=== PATIENT | male | born 1965 | race Caucasian/White ===

== ENCOUNTER 2016-12-26 13:46 | Outpatient (CLI) | payer BC ==
[2016-12-26 15:21] LABS: #Basophils 0.1 thou/uL (0.0-0.2); #Eosinphils 0.3 thou/uL (0.0-0.7); #Lymphocytes 3.2 thou/uL (1.20-3.40); #Monocytes 0.9 thou/uL (0.11-0.59); #Neutrophils 7.5 thou/uL (1.40-6.50); %Basophils 0.9 % (0.0-1.0); %Eosinophils 2.9 % (0.0-10.0); %Lymphocytes 26.4 % (21.0-51.0); %Monocytes 7.4 % (0.0-10.0); Hematocrit 55.1 % (42.0-52.0); Mean Platelet Volume 7.4 fL (7.4-10.4); Red Blood Cell (RBC) Count 6.16 mill/uL (4.70-6.10)
[2016-12-26 15:44] LABS: Anion Gap 13 mmol/L (10-20); BUN (Urea Nitrogen) 13 mg/dL (8.4-25.7); Calc. Creatinine Clearance 0 mL/min (70-130); Calcium 9.2 mg/dL (7.8-10.44); Carbon Dioxide 26 mmol/L (22-29); Chloride 101 mmol/L (98-107); Estimated GFR-MDRD 84
== END 2016-12-26 13:47 | disposition home or self-care (01) ==
LOC: LABBT 13:46
PROVIDERS: ATTEND Orthopaedic Surgery
DX: Z01.818 Encounter for other preprocedural examination (principal); M75.101 Unspecified rotator cuff tear or rupture of right shoulder, not specified as traumatic
CPT/HCPCS: 80048; 85025; 93005; 93010

== ENCOUNTER → 2016-12-28 | Day surgery (SDC) | payer BC ==
[2016-12-26 14:06] VITALS: BMI 44.1
[~2016-12-28] MED LIST: Fentanyl 100 MCG/2 ML VIAL IV PRN; Fentanyl 100 MCG/2 ML VIAL ONE; Glycopyrrolate 0.2 MG/ML 5 ML SYRINGE ONE; HYDROcodone/Acetaminophen 7.5/325 mg Tablet PO PRN; Ketorolac Tromethamine 30 MG/ML VIAL IVP PRN; Ketorolac Tromethamine 30 MG/ML VIAL ONE; Lidocaine 1% PF 5 ML VIAL ONE; Midazolam HCl 2 mg/2 ml Vial ONE; Ondansetron HCl/PF 4 MG/2 ML Vial IVP PRN; Ondansetron HCl/PF 4 MG/2 ML Vial ONE; Pentazocine HCl/Naloxone HCl 50/0.5 MG TAB PO SCH; Promethazine HCl 25 MG/ML VIAL IM PRN; Propofol 200 MG/20 ML VIAL ONE; Ropivacaine 0.2% 550 ML 550 ML NERVE BLCK SCH; Ropivacaine 0.2% HCl/PF 20 ML ONE; Sodium Chloride For Inhalation 0.9% 3 ML NEB ONE; Succinylcholine Chloride 20 MG/ML 10 ml SYRINGE FS ONE; Zolpidem Tartrate 5 MG TAB PO PRN; traMADol HCl 50 MG TAB PO PRN
--- NOTE | 2016-12-28 14:30 | OP ---
DATE OF PROCEDURE: 12/28/2016 PREOPERATIVE DIAGNOSES: Right shoulder impingement with rotator cuff tear and degenerative labral t ear leading to biceps instability. POSTOPERATIVE DIAGNOSES: Right shoulder impingement with rotator cuff tear and degenerative labral tear leading to biceps instability. PROCEDURE PERFORMED: Right shoulder open subacromial decompression followed by open rotator cuff re pair, followed by open biceps tenodesis. SURGEON: Cooper Bowles M.D. RANGE CONSERVATIONIST: Mariano Baker PA-C. BLOOD LOSS: Approximately 50 mL. COMPLICATIONS: None. IMPLANTS: We used 2 double loaded titanium anchors as well as two 4.75 BioComposite SwiveLocks with rotator cuff tear and we used a 7 x 23 BioComposite Bio-Tenodesis screw. DISPOSITION: He did go to recovery in stable condition. CONDITION: He had general anesthetic, he also had a block. INDICATIONS: This is a 51-year-old male who has been having problems with his right shoulder with p ain and weakness and he has failed nonoperative treatment at this time. At this time, he wished his rotator cuff repaired. DESCRIPTION OF PROCEDURE: After all appropriate consent forms were explained and signed, he was satish en to the operating room and at this time and was given a general anesthetic. Once the level of ane sthesia was appropriate, he was placed in modified beach chair position with all bony prominences we ll-padded. At this time, the right shoulder and upper extremity were then prepped and draped in the standard surgical fashion. Incision line was made with a 10 blade down through skin. Bovie was us ed to coagulate any brisk venous bleeding. At this time, full thickness deltoid and deltoid fascia was taken off the anterior acromion and a Enrique was used to protect the underlying rotator cuff, a saw was used to perform anterior inferior acromioplasty. Rasp was used to smooth off the edges. At this time, we then removed our bursa which was on top of the underlying rotator cuff. Once this was removed, we were able to visualize our cuff tear. All the edges were cleaned up with a knife as well as a rongeur. There was an undersurface delamination noted in the posterior aspect of the sup raspinatus going on into the infraspinatus. A portion of this was debrided and we then passed some 0 Vicryl sutures in mattress fashion to sew the bottom layer to the top layer closing this down. At this time, we then turned our attention to find the biceps tendon. This was tagged, cut out from i nside the joint. We then opened up the bicipital groove, coagulating any brisk venous bleeding. We then sewed and cut off the intra-articular portion of the biceps tendon. We then placed our pin, d rilled with a 7 mm reamer to a depth of 25 and placed our BioComposite Bio-Tenodesis screw in standa rd fashion. Stitches were tied over top so the screw could not back out and these were then cut. A t this time, our biceps was tenodesed and we then turned our attention to repairing our rotator cuff . The greater tuberosity had all soft tissue removed from it to get to good bleeding punctate bone. We then thoroughly irrigated and dried. We then placed two double loaded titanium anchors right o ff the articular surface and passed these threads through the rotator cuff in mattress fashion using a free needle. These were then sequentially tied and we then took 4 strands each and placed two 4. 75 BioComposite swivel locks for double row repair laterally down the arm. This was punched and lio jaymie in standard fashion and this gave us a nice double row repair. We then took the arm through ful l range of motion and found it to be nice and stable and have free range of motion. We then thoroug hly irrigated and dried. We then used multiple interrupted #1 Ethibond sutures to repair our deltoi d through the acromion bone. We then ran a large Vicryl to close the remaining deltoid fascia, 2-0 Vicryl and surgical violet were then used to close skin. Bulky sterile dressing was applied. The patient was awakened and taken to the recovery room in stable condition. All counts were correct at the end of the case. He received preoperative IV antibiotics.
== END ==
LOC: SDC 07:22
PROVIDERS: ATTEND Orthopaedic Surgery
PROC: 0LS30ZZ Reposition Right Upper Arm Tendon, Open Approach (ICD-10-PCS; principal; 2016-12-28)
PROC: 0LQ10ZZ Repair Right Shoulder Tendon, Open Approach (ICD-10-PCS; principal; 2016-12-28)
PROC: 0RHJ04Z Insertion of Internal Fixation Device into Right Shoulder Joint, Open Approach (ICD-10-PCS; principal; 2016-12-28)
DX: M75.41 Impingement syndrome of right shoulder (principal); M75.101 Unspecified rotator cuff tear or rupture of right shoulder, not specified as traumatic; S46.111A Strain of muscle, fascia and tendon of long head of biceps, right arm, initial encounter; I10 Essential (primary) hypertension; E78.00 Pure hypercholesterolemia, unspecified; K21.9 Gastro-esophageal reflux disease without esophagitis; Z90.49 Acquired absence of other specified parts of digestive tract; Z98.890 Other specified postprocedural states; Z95.1 Presence of aortocoronary bypass graft; Z82.3 Family history of stroke; Z80.9 Family history of malignant neoplasm, unspecified; Z96.1 Presence of intraocular lens; Z88.1 Allergy status to other antibiotic agents; Z79.84 Long term (current) use of oral hypoglycemic drugs; Z79.82 Long term (current) use of aspirin; Z79.899 Other long term (current) drug therapy
CPT/HCPCS: A4306; C1713; J1885; J2001; J2250; J2405; J2704; J2795; J3010; J3370; J7050; J7620

== ENCOUNTER 2019-10-21 10:35 | Outpatient (CLI) | payer BC ==
[2019-10-21] MEDS ORDERED: EPINEPHrine 1 MG/ML AMP ONE (11:20)
[2019-10-21] MEDS ORDERED: Iopamidol 300 61% 50 ML VIAL FS ONE (11:20)
[2019-10-21] MEDS ORDERED: Lidocaine 1% PF 10 ML AMP ONE (11:20)
--- NOTE | 2019-10-21 13:28 | CT ---
LEFT SHOULDER CT SCAN POST ARTHROGRAM CONTRAST: HISTORY: Left shoulder pain. Examination performed following a left shoulder arthrogram. FINDINGS: Significant arthrosis changes of the AC joint with undersurface spurring of the distal clavicle and a prominent undersurface spur of the lateral acromion with some mild lateral acromion downsloping. Th ere is a complete full-thickness moderately retracted supraspinatus tendon tear initially at the foot plate and then extending more towards the level of the magic angle with retraction back to the level of the mid humeral dome. There also appears to be an undersurface and minimally delaminating tear of the infraspinatus tendon. The intraarticular biceps tendon is somewhat poorly defined. Minimal thi ckening of the subscapularis tendon possibly representing some tendinopathy. There is some narrowing of the glenohumeral joint space, evidence for arthrosis. Moderate muscle volume loss of the suprasp inatus muscle. IMPRESSION: Full-thickness retracted tear of the supraspinatus tendon with an undersurface and delaminating tear of the infraspinatus tendon. Fairly marked muscle volume loss of the supraspinatus muscle. Evidence for some narrowing of the glenohumeral joint space, evidence for arthrosis. Evidence for some thickening of the subscapularis tendon possibly representing some tendinopathy. Poorly defined biceps tendon. Evidence for some blunting and distinction of the glenoid labrum. POS: AH
--- NOTE | 2019-10-21 13:31 | RAD ---
Arthrogram left shoulder HISTORY: Internal derangement. FINDINGS: After explaining the procedure and answering all questions, the anterior aspect the left sh oulder was prepped and draped in usual sterile fashion. Sterile technique, buffered local anesthesia, fluoroscopic guidance, and an anterior approach were us ed to carefully advance the tip of a 22-gauge spinal needle to the joint capsule at the level of the humeral head. A total of 8 cc liquid containing normal saline, 1% lidocaine, iodinated contrast, and small amount o f epinephrine were then instilled into the joint capsule under fluoroscopic control. Needle was removed. Contrast appeared to extend beyond the expected confines of the rotator cuff into the subacr omial bursa. Fluoroscopy time 0.4 minutes. Patient tolerated procedure well and was transferred to CT in good condition for further imaging. IMPRESSION : Technically successful left shoulder arthrogram with evidence of full-thickness rotator cuff tear. CT is pending.
== END 2019-10-21 10:36 | disposition home or self-care (01) ==
LOC: RAD 10:35
PROVIDERS: ATTEND Orthopaedic Surgery
DX: M25.512 Pain in left shoulder (principal); M75.122 Complete rotator cuff tear or rupture of left shoulder, not specified as traumatic; M19.012 Primary osteoarthritis, left shoulder
CPT/HCPCS: 23350; J0171; J2001; Q9967

== ENCOUNTER 2019-11-13 06:06 | Day surgery (SDC) | payer BC ==
[2019-11-10 08:22] VITALS: BMI 43.1
[2019-11-13] MEDS ORDERED: Fentanyl 100 MCG/2 ML VIAL ONE ×2 (06:48→06:49)
[2019-11-13] MEDS ORDERED: Midazolam HCl 2 mg/2 ml Vial ONE ×2 (06:49)
[2019-11-13] MEDS ORDERED: Bupivacaine/Epinephrine 0.25% 30 ML VIAL ONE (06:57)
[2019-11-13] MEDS ORDERED: Zolpidem Tartrate 5 MG TAB PO PRN (07:35)
[2019-11-13] MEDS ORDERED: Promethazine HCl 25 MG/ML VIAL IM PRN (07:35)
[2019-11-13] MEDS ORDERED: HYDROcodone/Acetaminophen 5/325 mg Tablet PO PRN ×2 (07:35)
[2019-11-13] MEDS ORDERED: traMADol HCl 50 MG TAB PO PRN ×2 (07:35)
[2019-11-13] MEDS ORDERED: Ropivacaine 0.2% 550 ML 550 ML NERVE BLCK SCH (07:35)
[2019-11-13] MEDS ORDERED: Ondansetron PF 4 MG/2 ML Vial IVP PRN (07:35)
[2019-11-13] MEDS ORDERED: Ropivacaine 0.2% HCl/PF 20 ML ONE (07:55)
[2019-11-13] MEDS ORDERED: SUGAMMADEX SODIUM 200 MG/2 ML VIAL ONE (08:31)
[2019-11-13] MEDS ORDERED: Ondansetron PF 4 MG/2 ML Vial ONE (10:20)
[2019-11-13] MEDS ORDERED: Promethazine HCl 25 MG/ML VIAL ONE (10:33)
[2019-11-13] MEDS ORDERED: Ketorolac Tromethamine 30 MG/ML VIAL ONE (11:10)
[2019-11-13] MEDS ORDERED: Rocuronium Bromide 10 MG/ML (10ML VIAL) ONE (11:55)
[2019-11-13] MEDS ORDERED: PHENYLEPHRINE-NS 100 MCG/ML 10 ML SYRINGE ONE (11:55)
[2019-11-13] MEDS ORDERED: Ropivacaine 0.2% HCl/PF (40 MG/20 ML VIAL) ONE (11:55)
[2019-11-13] MEDS ORDERED: PROPOFOL 200 MG/20 ML VIAL ONE (11:55)
[2019-11-13] MEDS ORDERED: Lidocaine 1% PF 5 ML VIAL ONE (11:55)
[2019-11-13] MEDS ORDERED: Ketorolac Tromethamine 30 MG/ML VIAL IVP SCH (12:00)
[2019-11-13] MEDS ORDERED: traMADol HCl 50 MG TAB ONE (12:57)
--- NOTE | 2019-11-13 16:43 | OP ---
DATE OF PROCEDURE: 11/13/2019 PREOPERATIVE DIAGNOSES: Left shoulder impingement rotator cuff tear and biceps tendon tearing and instability. POSTOPERATIVE DIAGNOSES: Left shoulder impingement rotator cuff tear and biceps tendon tearing and instability. PROCEDURES PERFORMED: 1. Left shoulder arthroscopy with arthroscopic subacromial decompression. 2. Arthroscopic rotator cuff repair. 3. Open biceps tenodesis. SURGEON: Cooper Bowles MD MANAGER READING: Rodo Baker PA-C ESTIMATED BLOOD LOSS: 50. COMPLICATIONS: None. ANESTHESIA: The patient had general anesthetic, also had a preoperative block. IMPLANTS: Into the left shoulder, one triple-loaded titanium rotator cuff anchor, multiple sutures for [id number] closure and one 7 x 23 BioComposite Bio-Tenodesis screw. DISPOSITION: He did go to recovery room in stable condition. INDICATIONS: This is a 54-year-old male, who comes in complaining of pain and weakness. On MRI, he was found to have a large retracted cuff tear and significant labral tearing and biceps pathology. At this time, he opted to have surgery. DESCRIPTION OF PROCEDURE: After all appropriate consent forms were explained and signed, Mr. Muñoz was taken to the operating room and at this time was given general anesthetic. Once the level of anesthesia was appropriate, he was rolled into the right lateral decubitus position with all bony prominences well padded. Axillary roll was placed underneath the right axilla. The beanbag was inflated to hold in this position. The arm was then taken through full range of motion and at this time, the arm was then suspended with 20 pounds in standard arthroscopic fashion. The left shoulder and upper extremity were than prepped and draped in standard surgical fashion. Bony anatomical landmarks were drawn out and the subacromial space was infiltrated with Marcaine with epinephrine. Posterior portal was established and the scope was placed into the shoulder joint. Anterior working portal was then made using a needle localization technique. Diagnostic arthroscopy commenced in the glenohumeral joint. The articular surface of the humeral head did have some mild chondral wear anteriorly, but for the most part was in good condition. The glenoid was in good condition. There was no loose bodies noted in the axillary pouch. There was significant synovitis and a degenerative SLAP tear with instability of the biceps tendon being easily demonstrated. At this time, a cannula was placed anteriorly. We used a combination of the shaver, SERFAS energy to get rid of our synovitis. We then went ahead and used an 18-gauge needle to mares the biceps tendon and place the stitch through. Arthroscopic scissors were used to cut the biceps off its labral insertion. This area was then debrided. At this time, we removed the scope and replaced in subacromial space. Lateral working portal was made. Bursa was removed, so we could visualize its large retracted tear. Supraspinatus was pulled off in its entirety, retracted and posterior to this, I made a D-type tear. Once the bursa was removed, and we had freed up the cuff from the bottom and the top surfaces, we were able to pull the rotator cuff just beyond the articular edge. At this time, all soft tissue was removed off the bony insertion area. Shaver was used to slightly decorticate this area. The edges of the intratendinous tearing were then freshened up with a shaver as well. PassPort button was placed laterally and through this, the Scorpion device was then used to place 4 [id number] stitches to close our extension posteriorly. Once this was done, we were able to use a needle through a separate stab incision and placed a triple-loaded titanium rotator cuff anchor. Secondary to the stiffness of the tendon and not being able to pull it all the way down laterally, we decided to make this a single-row repair and therefore, the scorpion was used to place each of the three suture strands through the cuff in a simple fashion. These were then tied, giving us a nice repair of our supraspinatus to the bone. At this time, scope was removed, shoulder was drained. A 15 blade was used to then incise down through skin. Bovie was used to coagulate any brisk venous bleeding. A sharp dissection was used through the fascia of the deltoid. Dissection was used to open this up and to get down to the underlying transverse humeral ligament. This was opened up and the biceps tendon was pulled out into the wound. The biceps tendon was then sutured in standard fashion and the intra-articular portion of the biceps was cut off and removed from the field. A pin was placed into the bone, followed by reaming with a 7.5 mm reamer to a depth of 25. A 7 x 23 BioComposite Bio-Tenodesis screw was then placed in standard fashion. Sutures were tied over top of this, so that the screw could not back out. We then thoroughly irrigated and dried and we then allowed our deltoid to close upon itself. Running Vicryl was used to close our deltoid fascia and 2-0 Vicryl and sutures were used to close skin. At this time, a bulky sterile dressing was then applied. The patient was then awakened, was taken to the recovery room in stable condition. All counts were correct at the end of the case and he did receive preoperative IV antibiotics. Dry Cleaning Counter Clerk surgeon was present throughout the open biceps tenodesis portion of the procedure. Job ID: [id number]
== END 2019-11-13 13:20 | disposition home or self-care (01) ==
LOC: SDC 06:06
PROVIDERS: ATTEND Orthopaedic Surgery
PROC: 0RNK4ZZ Release Left Shoulder Joint, Percutaneous Endoscopic Approach (ICD-10-PCS; principal; 2019-11-13)
PROC: 0LQ24ZZ Repair Left Shoulder Tendon, Percutaneous Endoscopic Approach (ICD-10-PCS; principal; 2019-11-13)
PROC: 0RHK04Z Insertion of Internal Fixation Device into Left Shoulder Joint, Open Approach (ICD-10-PCS; principal; 2019-11-13)
PROC: 0LS40ZZ Reposition Left Upper Arm Tendon, Open Approach (ICD-10-PCS; principal; 2019-11-13)
DX: M75.102 Unspecified rotator cuff tear or rupture of left shoulder, not specified as traumatic (principal); M25.812 Other specified joint disorders, left shoulder; S46.112A Strain of muscle, fascia and tendon of long head of biceps, left arm, initial encounter; S43.432A Superior glenoid labrum lesion of left shoulder, initial encounter; M65.812 Other synovitis and tenosynovitis, left shoulder; I10 Essential (primary) hypertension; K21.9 Gastro-esophageal reflux disease without esophagitis; F17.210 Nicotine dependence, cigarettes, uncomplicated; Z79.82 Long term (current) use of aspirin; Z79.899 Other long term (current) drug therapy; Z88.1 Allergy status to other antibiotic agents; Z95.1 Presence of aortocoronary bypass graft; Z98.890 Other specified postprocedural states
CPT/HCPCS: A4306; C1713; J0690; J1885; J2250; J2405; J2550; J2795; J3010; J3370; J7030